=== PATIENT | male | born 1975 | race Two or more races ===

== ENCOUNTER 2018-07-29 12:02 | Emergency (ER) | payer OTHER ==
[~2018-07-29] VITALS: Ht 172.7 cm; Wt 77.1 kg
[2018-07-29] MEDS ORDERED: ETOMIDATE (2MG/ML) 20ML VIAL IV ONE ×2 (14:45→15:45)
[2018-07-29] MEDS ORDERED: MORPHINE SULFATE 4 MG/ML SYR/VIAL IV ONE (15:45)
[2018-07-29] MEDS ORDERED: ONDANSETRON HCL 4 MG/2 ML VIAL IV ONE (15:45)
[2018-07-29] MEDS ORDERED: PROPOFOL 100 ML IV ONE (17:20)
[2018-07-29] MEDS ORDERED: PROPOFOL 10 MG/ML 20 ML IV ONE (17:30)
[2018-07-29] MEDS ORDERED: HYDROcodone-ACET 10/325MG TAB PO ONE (19:00)
[2018-07-29 21:42] VITALS: BP 121/64
== END 2018-07-29 21:55 | disposition short-term general hospital (02) ==
LOC: EEVIPCON 12:06 → ER 12:06
DX: S43.005A Unspecified dislocation of left shoulder joint, initial encounter (principal); Z88.4 Allergy status to anesthetic agent; W19.XXXA Unspecified fall, initial encounter; Y93.89 Activity, other specified; Y99.8 Other external cause status; Y92.89 Other specified places as the place of occurrence of the external cause
CPT/HCPCS: 23650; 73020; 73030; 96374; 96375; 99152; 99285; J2270; J2405; J2704; J7030

== ENCOUNTER 2018-09-12 03:15 | Inpatient (IN) | payer OTHER ==
[~2018-09-12] VITALS: Ht 172.7 cm; Wt 76.5 kg
[2018-09-12 04:58] LABS: Basophils # (auto) 0.2 uL; Basophils % (auto) 3.3 % (0.0-2.0); Eosinophils # (auto) 0.1 uL; Eosinophils % (auto) 2.5 % (0.0-7.0); Hematocrit 42.1 % (41.0-53.0); Hemoglobin 14.3 g/dL (13.5-17.5); Lymphocytes # (auto) 1.5 uL; Lymphocytes % (auto) 27.7 % (10.0-50.0); Mean Corpuscular Hemoglobin 30.5 pg (28.0-32.0); Mean Corpuscular Hgb Conc. 33.9 g/dL (32.0-36.0); Monocytes # (auto) 0.4 uL; Monocytes % (auto) 6.4 % (0.0-12.0); Neutrophils # (auto) 3.3 uL; Neutrophils % (auto) 60.1 % (37.0-80.0); Platelet Count (auto) 208 10^3/uL (140-450); Red Blood Cells 4.68 10^6/uL (4.5-5.90); Red Cell Distribution Width 12.9 % (11.8-14.3); White Blood Cell 5.5 10^3/uL (4.4-10.8)
[2018-09-12 05:12] LABS: Albumin 4.5 g/dL (3.4-5.0); Calcium 9.4 mg/dL (8.5-10.1); Potassium 4.4 mmol/L (3.5-5.1)
[2018-09-12 05:16] LABS: BUN/Creatinine Ratio 30.8; Bilirubin, Total 0.4 mg/dL (0.2-1.0); Total Protein 8.4 g/dL (6.4-8.2)
[2018-09-12] MEDS ORDERED: MORPHINE SULF INJ 2 MG/ML SYRINGE 1ML IV PRN (07:00)
[2018-09-12] MEDS ORDERED: NITROGLYCERIN 0.4 MG SL TAB SL PRN (07:00)
[2018-09-12] MEDS ORDERED: traMADol HCL 50 MG TAB PO PRN (07:00)
[2018-09-12] MEDS: FLUoxetine HCL 20 MG CAP PO SCH (10:25)
[2018-09-12] MEDS: ONDANSETRON ODT 4 MG TAB PO PRN (10:27)
--- NOTE | 2018-09-12 11:20 | NUR ---
MS admit from ER LATRICIA ZHANG admitted to tele/MS after SBAR received. Patient oriented to Maylin Marie, primary RN, unit, room, bed, and unit policies regarding patient care and visiting hours. Patient weighed by bedscale and encouraged to call if they need something. All questions and concerns addressed, patient verbalized understanding. Note: PATIENT PLACED IN HOSPITAL GOWN, GUARDS AT BEDSIDE, PATIENT SHACKLED TO BED.
--- NOTE | 2018-09-12 11:25 | NUR ---
AT BEDSIDE: DR. BOUDREAUX AT BEDSIDE, NEW ORDERS OBTAINED, PATIENT ENCOURAGED TO AMBULATE.
[2018-09-12] MEDS ORDERED: KETOROLAC TROMETH 15 mg/ml 1ML VL IV PRN (11:30)
[2018-09-12 11:38] VITALS: BP 118/73
--- NOTE | 2018-09-12 11:43 | NUR ---
PATIENT IS AN INMATE SHACKLES NOTED TO LEFT UPPER EXTREMITY AND BILATERAL LOWER EXTREMITIES, Addendum: 09/12/18 at 1149 by Maylin Marie RN Amended: Links added.
--- NOTE | 2018-09-12 11:54 | NUR ---
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 HE STATED THAT HIS DAUGHTER RECENTLY PRIOR TO HIM BEING RELEASED FROM DETENTION AND IT MAKES HIM FEEL VERY DEPRESSED. PATIENT HAS 4 GUARDS AT BEDSIDE TO MONITOR AND SHACKLES TO BILATERAL LOWER EXTREMITIES AND LEFT UPPER EXTREMITY. Addendum: 09/12/18 at 1200 by Maylin Marie RN Amended: Links added.
[2018-09-12 12:00] VITALS: BP 118/73
--- NOTE | 2018-09-12 12:08 | NUR ---
PAIN: PATIENT COMPLAINT OF ABDOMINAL PAIN 7/10, MEDICATED PER ORDER, WILL CONTINUE TO MONITOR.
--- NOTE | 2018-09-12 13:15 | NUR ---
REPORT RECEIVED, PATIENT IS ALERT ORIENTED X4, NO DISTRESS NOTED, CALM, MORE WITHDRAWN, STAYING TO HIM SELF, NO DISTRESS NOTED, SELF REPOSITION, ABLE TO VERBALIS HIS DEMANDS,CALL LIGHT WITHIN REACH, PATIENT'S GUARDS AT BED SIDE AT AL TIMES.
[2018-09-12 16:00] VITALS: BP 117/67
--- NOTE | 2018-09-12 17:27 | NUR ---
PATIENT IS SLEEPING, NO DISTRESS NOTED, CONTINUE MONITORING.
--- NOTE | 2018-09-12 19:15 | NUR ---
Opening Shift Note Assumed care of patient, awake and alert. No S/S of distress/SOB or pain. Instructed on POC and to call for assist PRN, will continue to monitor for changes Q1hr and PRN. Side rails up x2. Bed locked in lowest position. Call light within reach. 2 guards at bedside. Cuffs on both lower extremities and right wrist.
[2018-09-12 22:00] VITALS: BP 103/59
[2018-09-13 05:00] VITALS: BP 96/60
--- NOTE | 2018-09-13 07:35 | NUR ---
Endorsed care to day shift RN. 2 guards at bedside with cuffs on both lower extremity and left wrist.
[2018-09-13 08:00] VITALS: BP 101/70
[2018-09-13 09:00] VITALS: BP 101/70
[2018-09-13] MEDS: FLUoxetine HCL 20 MG CAP PO SCH (10:32)
--- NOTE | 2018-09-13 11:05 | NUR ---
DR. BOUDREAUX AT BEDSIDE. PLAN TO D/C PT IF KUB SHOW NO OBSTRUCTION. WILL CALL MD WHEN KUB RESULT UP.
[2018-09-13 13:26] VITALS: BP 105/72
[2018-09-13] MEDS: ONDANSETRON ODT 4 MG TAB PO PRN (14:07)
--- NOTE | 2018-09-13 15:22 | NUR ---
CALLED DR. BOUDREAUX REGARDING KUB RESULT. SPOKE TO KENYA FRONT OFFICE. DR BOUDREAUX IS NOT AT THE OFFICE AT THIS TIME. KENYA WILL PASS THE MESSAGE TO
--- NOTE | 2018-09-13 15:30 | NUR ---
UPDATE DR. JANUSZ MUELLER RESULT. NO NEW ORDER AT THIS TIME. CONTINUE CARE.
--- NOTE | 2018-09-13 16:07 | NUR ---
OBTAINED NEW ORDER FROM DR. BOUDREAUX: DISCHARGE PT BACK TO FACILITY. WILL CARRY OUT ORDER. Signed: 09/13/18 at 1609 by Jona Lynn RN RN
[2018-09-13 16:22] VITALS: BP 101/70
--- NOTE | 2018-09-13 17:45 | NUR ---
Discharge back to half-way. Discharge instructions given as ordered. All questions and concerns addressed. Patient verbalized understanding. Medication reconciliation form completed and copy given to Guardleonie. IV removed with catheter intact, pressure dressing applied. No acute distress noted. Guards X2 at bedside.
[2018-09-13] MEDS ORDERED: PANTOPRAZOLE 40 MG TAB PO SCH (22:00)
== END 2018-09-13 17:35 | DRG 395 ==
LOC: ER 03:15 → EEVIPCON 03:15 → OVERFLOW 03:16 → EAST 11:20
PROVIDERS: ADMIT Internal Medicine; ATTEND Internal Medicine
DX: T18.2XXA Foreign body in stomach, initial encounter (principal); K29.70 Gastritis, unspecified, without bleeding; F60.9 Personality disorder, unspecified; B18.2 Chronic viral hepatitis C; F32.9 Major depressive disorder, single episode, unspecified; Z88.8 Allergy status to other drugs, medicaments and biological substances; X83.8XXA Intentional self-harm by other specified means, initial encounter; Y93.89 Activity, other specified; Y92.89 Other specified places as the place of occurrence of the external cause; Y99.8 Other external cause status
CPT/HCPCS: 36415; 74018; 74176; 80053; 85025; 87081; G0378; Q0162

== ENCOUNTER 2018-10-21 17:52 | Emergency (ER) | payer OTHER ==
[~2018-10-21] VITALS: Ht 172.7 cm; Wt 65.8 kg
[2018-10-21 18:20] VITALS: BP 106/64
[2018-10-21] MEDS ORDERED: KETOROLAC TROMETH 30 MG/ML 1ML VIAL IV ONE (19:15)
== END 2018-10-21 19:36 | disposition home or self-care (01) ==
LOC: EEVIPCON 17:52 → ER 17:52
DX: S40.012A Contusion of left shoulder, initial encounter (principal); Z88.8 Allergy status to other drugs, medicaments and biological substances; Z90.49 Acquired absence of other specified parts of digestive tract; W01.0XXA Fall on same level from slipping, tripping and stumbling without subsequent striking against object, initial encounter; Y93.89 Activity, other specified; Y92.89 Other specified places as the place of occurrence of the external cause; Y99.8 Other external cause status
CPT/HCPCS: 73030; 93005; 96372; 99283; J1885

== ENCOUNTER 2018-10-30 20:49 | Emergency (ER) | payer OTHER ==
[~2018-10-30] VITALS: Ht 172.7 cm; Wt 65.8 kg
[2018-10-30] MEDS ORDERED: MORPHINE SULFATE 4 MG/ML SYR/VIAL IV ONE (23:00)
[2018-10-30] MEDS ORDERED: ONDANSETRON HCL 4 MG/2 ML VIAL IV ONE (23:00)
[2018-10-30] MEDS ORDERED: SODIUM CHLORIDE 0.9% 1,000 ML IV SCH (23:00)
[2018-10-30 23:34] LABS: Basophils # (auto) 0.1 uL; Basophils % (auto) 0.9 % (0.0-2.0); Eosinophils # (auto) 0.1 uL; Eosinophils % (auto) 1.7 % (0.0-7.0); Hematocrit 34.7 % (41.0-53.0); Hemoglobin 11.8 g/dL (13.5-17.5); Lymphocytes # (auto) 0.8 uL; Lymphocytes % (auto) 12.5 % (10.0-50.0); Mean Corpuscular Hemoglobin 29.8 pg (28.0-32.0); Mean Corpuscular Hgb Conc. 33.9 g/dL (32.0-36.0); Mean Corpuscular Volume 87.9 fL (80.0-100.0); Monocytes # (auto) 0.6 uL; Monocytes % (auto) 9.8 % (0.0-12.0); Neutrophils # (auto) 4.8 uL; Neutrophils % (auto) 75.1 % (37.0-80.0); Platelet Count (auto) 358 10^3/uL (140-450); Red Blood Cells 3.95 10^6/uL (4.5-5.90); Red Cell Distribution Width 14.2 % (11.8-14.3); White Blood Cell 6.3 10^3/uL (4.4-10.8)
[2018-10-30 23:50] LABS: Albumin 3.4 g/dL (3.4-5.0); BUN/Creatinine Ratio 24.4; Calcium 9.3 mg/dL (8.5-10.1); Potassium 3.7 mmol/L (3.5-5.1)
[2018-10-30 23:53] LABS: Bilirubin, Total 0.5 mg/dL (0.2-1.0); Total Protein 7.6 g/dL (6.4-8.2)
[2018-10-31 01:20] VITALS: BP 105/63
== END 2018-10-31 02:23 | disposition home or self-care (01) ==
LOC: EEVIPCON 20:50 → ER 20:50
DX: S50.02XA Contusion of left elbow, initial encounter (principal); S50.01XA Contusion of right elbow, initial encounter; R10.9 Unspecified abdominal pain; R51 Headache; Z91.041 Radiographic dye allergy status; Z88.8 Allergy status to other drugs, medicaments and biological substances; Y08.89XA Assault by other specified means, initial encounter; Y93.89 Activity, other specified; Y99.8 Other external cause status; Y92.89 Other specified places as the place of occurrence of the external cause
CPT/HCPCS: 36415; 70450; 70486; 71250; 72125; 73030; 73070; 74176; 80053; 83690; 85025; 99284; J2270; J2405; J7030

== ENCOUNTER 2018-11-14 08:49 | Emergency (ER) | payer OTHER ==
[~2018-11-14] VITALS: Ht 172.7 cm; Wt 68.0 kg
[2018-11-14 10:08] LABS: Basophils # (auto) 0 uL; Basophils % (auto) 0.5 % (0.0-2.0); Eosinophils # (auto) 0 uL; Eosinophils % (auto) 0.4 % (0.0-7.0); Hematocrit 46.5 % (41.0-53.0); Hemoglobin 14.9 g/dL (13.5-17.5); Lymphocytes # (auto) 1.1 uL; Mean Corpuscular Hemoglobin 30.5 pg (28.0-32.0); Mean Corpuscular Volume 95.4 fL (80.0-100.0); Monocytes # (auto) 0.6 uL; Monocytes % (auto) 6.1 % (0.0-12.0); Nucleated Red Blood Cells % 0.2 %; Platelet Count (auto) 181 10^3/uL (140-450); Red Blood Cells 4.87 10^6/uL (4.5-5.90); Red Cell Distribution Width 15.2 % (11.8-14.3); White Blood Cell 9.8 10^3/uL (4.4-10.8)
[2018-11-14 10:19] LABS: Albumin 4.3 g/dL (3.4-5.0); Calcium 9.6 mg/dL (8.5-10.1); Potassium 4.6 mmol/L (3.5-5.1)
[2018-11-14 10:22] LABS: BUN/Creatinine Ratio 32.5; Bilirubin, Total 0.6 mg/dL (0.2-1.0); Total Protein 8.2 g/dL (6.4-8.2)
[2018-11-14 11:32] VITALS: BP 99/70
[2018-11-14 12:07] LABS: INR 0.95 (0.9-1.15); Partial Thromboplastin Time 25.5 sec (23.64-32.05)
[2018-11-14 12:33] LABS: Urine WBC None Seen /hpf (0 - 3)
[2018-11-14 12:52] LABS: Urine Bacteria NONE SEEN /hpf (None Seen); Urine Blood Negative /uL (Negative); Urine Mucus FEW (None Seen); Urine Specific Gravity 1.022 (1.001-1.035)
[2018-11-14] MEDS ORDERED: ONDANSETRON HCL 4 MG/2 ML VIAL ONE (13:22)
[2018-11-14] MEDS ORDERED: ONDANSETRON HCL 4 MG/2 ML VIAL IV ONE (13:30)
== END 2018-11-14 14:05 ==
LOC: EEVIPCON 08:50 → ER 08:50
DX: R10.84 Generalized abdominal pain (principal); I10 Essential (primary) hypertension; E05.90 Thyrotoxicosis, unspecified without thyrotoxic crisis or storm; Z90.49 Acquired absence of other specified parts of digestive tract; Z88.8 Allergy status to other drugs, medicaments and biological substances; Z88.4 Allergy status to anesthetic agent
CPT/HCPCS: 36415; 71045; 74018; 74176; 80053; 81001; 85025; 85610; 85730; 96374; 99284; J2405